=== PATIENT | female | born 2000 | race African-American/Black ===

== ENCOUNTER 2020-02-01 13:47 | Emergency (ER) | payer OTHER ==
[2020-02-01 13:58] VITALS: BP 127/62; PULSE 108; TEMP 97.8; BMI 37.5
[2020-02-01] MEDS ORDERED: ALBUTEROL SO4 2.5/IPRATROPIUM 0.5 INH SOL 3 ML VIAL.NEB. NEB ONE ×5 (14:04→14:31)
[2020-02-01] MEDS ORDERED: predniSONE 20 MG TABLET (UD) PO ONE (14:05)
[2020-02-01] MEDS ORDERED: predniSONE 20 MG TABLET (UD) ONE (14:06)
== END 2020-02-01 15:40 | disposition home or self-care (01) ==
LOC: JERFT 13:47
PROC: 3E0F7GC Introduction of Other Therapeutic Substance into Respiratory Tract, Via Natural or Artificial Opening (ICD-10-PCS; principal; 2020-02-01)
DX: J45.901 Unspecified asthma with (acute) exacerbation (principal)
CPT/HCPCS: 99285-25

== ENCOUNTER 2020-11-19 11:31 | Emergency (ER) | payer OTHER ==
[2020-11-19 11:45] VITALS: BP 117/71; PULSE 94; TEMP 98.4; BMI 38.4
[2020-11-19 12:38] LABS: BASO % 0.7 % (0-2.0); EOS % 2.7 % (0-4.5); HEMATOCRIT 40.2 % (32.4-45.2); LYMPH % 20.5 % (8-40); MCH 30.2 pg (25.7-33.7); MCHC 34.8 g/dl (32.0-36.0); MEAN CELL VOLUME 86.9 fl (80-96); MEAN PLT VOLUME 8.3 fl (7.5-11.1); MONO % 10.2 % (3.8-10.2); NEUT % 65.9 % (42.8-82.8); PLATELET COUNT 303 10^3/uL (134-434); RBC 4.63 M/mm3 (3.60-5.2); RDW 13.5 % (11.6-15.6); WHITE BLOOD COUNT 6.2 K/mm3 (4.0-10.0)
[2020-11-19 12:42] LABS: PH,URINE 6.5 (5.0-8.0); URINE APPEARANCE CLEAR; URINE BILIRUBIN NEGATIVE (NEGATIVE); URINE COLOR YELLOW; URINE GLUCOSE (UA) NEGATIVE (NEGATIVE); URINE KETONE NEGATIVE (NEGATIVE); URINE LEUK ESTERASE NEGATIVE (NEGATIVE); URINE NITRITE NEGATIVE (NEGATIVE); URINE PROTEIN NEGATIVE (NEGATIVE)
[2020-11-19 12:43] LABS: HCG,QUALITATIVE URINE Positive
== END 2020-11-19 15:05 | disposition home or self-care (01) ==
LOC: JERFT 11:31
DX: Z32.01 Encounter for pregnancy test, result positive (principal)
CPT/HCPCS: 36415; 81003; 84702; 84703; 85025; 86850; 86900; 86901; 87086; 87491; 87591; 99283-25

== ENCOUNTER 2020-12-03 12:13 | Emergency (ER) | payer OTHER ==
[2020-12-03 12:26] VITALS: BP 95/50; PULSE 86; TEMP 98.3; BMI 38.4
[2020-12-03 13:43] LABS: BASO % 0.6 % (0-2.0); EOS % 2.8 % (0-4.5); HEMATOCRIT 40.2 % (32.4-45.2); LYMPH % 25.4 % (8-40); MCH 30.3 pg (25.7-33.7); MCHC 34.7 g/dl (32.0-36.0); MEAN CELL VOLUME 87.3 fl (80-96); MEAN PLT VOLUME 8.7 fl (7.5-11.1); MONO % 11.1 % (3.8-10.2); NEUT % 60.1 % (42.8-82.8); PLATELET COUNT 313 10^3/uL (134-434); RBC 4.61 M/mm3 (3.60-5.2); RDW 12.9 % (11.6-15.6); WHITE BLOOD COUNT 5.7 K/mm3 (4.0-10.0)
[2020-12-03 13:59] LABS: EPI CELLS >36 /uL (0-25.1); HYALINE CASTS 1 /uL (0-3.1); PH,URINE 6.5 (5.0-8.0); URINE APPEARANCE CLOUDY; URINE BACTERIA 643 /uL (0-1359); URINE BILIRUBIN NEGATIVE (NEGATIVE); URINE COLOR YELLOW; URINE GLUCOSE (UA) NEGATIVE (NEGATIVE); URINE KETONE 2+ (NEGATIVE); URINE LEUK ESTERASE NEGATIVE (NEGATIVE); URINE NITRITE NEGATIVE (NEGATIVE); URINE PROTEIN NEGATIVE (NEGATIVE); URINE RBC 5 /uL (0-23.9); URINE WBC 17 /uL (0-25.8)
== END 2020-12-03 15:55 | disposition home or self-care (01) ==
LOC: JERFT 12:13
DX: O20.0 Threatened abortion (principal)
CPT/HCPCS: 36415; 76817-TC; 81003; 84702; 85025; 87086; 87491; 87591; 99284-25

== ENCOUNTER 2020-12-06 19:37 | Emergency (ER) | payer OTHER ==
[2020-12-06 19:41] VITALS: BP 100/71; PULSE 79; TEMP 98.3; BMI 40.2
== END 2020-12-06 23:36 | disposition home or self-care (01) ==
LOC: JER 19:37
DX: O20.0 Threatened abortion (principal); Z3A.01 Less than 8 weeks gestation of pregnancy
CPT/HCPCS: 36415; 84702; 99283-25

== ENCOUNTER 2021-07-25 01:45 | Inpatient (IN) | payer OTHER ==
[2021-07-25] MEDS ORDERED: DEXTROSE 5%-LACTATED RINGERS 1,000 ML IV SCH (02:10)
[2021-07-25] MEDS ORDERED: PROMETHAZINE HCL 25 MG/1 ML VIAL IVPB ONE (03:30)
[2021-07-25] MEDS ORDERED: BUTORPHANOL TARTRATE 1 MG/ML VIAL IVPB ONE (03:30)
[2021-07-25] MEDS ORDERED: PROMETHAZINE HCL 25 MG/1 ML VIAL ONE (03:41)
[2021-07-25] MEDS ORDERED: BUTORPHANOL TARTRATE 1 MG/ML VIAL ONE (03:41)
[2021-07-25 04:06] VITALS: BMI 44.2
[2021-07-25] MEDS ORDERED: CITRIC ACID/SODIUM CITRATE 30 ML UNIT-DOSE CUP PO ONE (05:00)
[2021-07-25] MEDS ORDERED: ELECTROLYTE-148 SOLN 500 ML IV ONE (05:00)
[2021-07-25] MEDS ORDERED: ELECTROLYTE-148 SOLN 1,000 ML IV SCH (05:30)
[2021-07-25] MEDS ORDERED: ACETAMINOPHEN 1000 MG/100 ML BAG IVPB PRN (07:09)
[2021-07-25] MEDS ORDERED: SENNOSIDES/DOCUSATE COMBO (SENNA PLUS) TABLET (UD) PO PRN (07:09)
[2021-07-25] MEDS ORDERED: ONDANSETRON 4 MG/2 ML VIAL IVPB PRN (07:09)
[2021-07-25] MEDS ORDERED: IBUPROFEN 800 MG/8 ML IJ IVPB PRN (07:09)
[2021-07-25] MEDS ORDERED: ACETAMINOPHEN 325 MG TABLET (FP) PO PRN (07:09)
[2021-07-25] MEDS ORDERED: OXYTOCIN 20 UNITS in 0.9% NS 20 UNIT/1,000 ML INFUS.BAG IV SCH (07:15)
[2021-07-25] MEDS ORDERED: ACETAMINOPHEN INJECTION 100 ML IVPB ONE (08:12)
[2021-07-25] MEDS: CEFAZOLIN 2 GM in DEXTROSE 5%-WATER - 100 ML IVPB SCH ×2 (09:30→17:50)
[2021-07-26] MEDS: oxyCODONE HCL 5 MG TABLET PO PRN ×2 (03:37→09:01)
[2021-07-26] MEDS: SIMETHICONE 80 MG TAB.CHEW (FP) PO PRN ×3 (03:37→19:50)
[2021-07-26] MEDS ORDERED: BISACODYL 10 MG SUPP.RECT RC PRN (07:09)
[2021-07-26 08:33] LABS: BASO % 0.3 % (0-2.0); EOS % 2.4 % (0-4.5); HEMATOCRIT 30.1 % (32.4-45.2); HEMOGLOBIN 10.2 GM/dL (10.7-15.3); MCH 28.3 pg (25.7-33.7); MCHC 33.8 g/dl (32.0-36.0); MEAN CELL VOLUME 83.8 fl (80-96); MEAN PLT VOLUME 9.9 fl (7.5-11.1); MONO % 9.2 % (3.8-10.2); NEUT % 73.1 % (42.8-82.8); PLATELET COUNT 271 10^3/uL (134-434); RBC 3.59 M/mm3 (3.60-5.2); RDW 13.3 % (11.6-15.6)
[2021-07-26] MEDS: IBUPROFEN 600 MG TABLET (FP) PO PRN ×2 (14:08→19:50)
[2021-07-27] MEDS: SIMETHICONE 80 MG TAB.CHEW (FP) PO PRN ×3 (01:43→16:07)
[2021-07-27] MEDS: IBUPROFEN 600 MG TABLET (FP) PO PRN ×3 (01:44→16:05)
[2021-07-28] MEDS: SIMETHICONE 80 MG TAB.CHEW (FP) PO PRN (01:58)
[2021-07-28] MEDS: IBUPROFEN 600 MG TABLET (FP) PO PRN (01:58)
[2021-07-28 09:42] VITALS: BP 107/69; PULSE 88; TEMP 98.7
== END 2021-07-28 10:20 | disposition home or self-care (01) | DRG 540 ==
LOC: JDEL 01:45 → JLDR 03:30 → J3W 08:20
PROVIDERS: ADMIT Specialist; ATTEND Specialist
PROC: 10D00Z1 Extraction of Products of Conception, Low, Open Approach (ICD-10-PCS; principal; 2021-07-25)
DX: O76 Abnormality in fetal heart rate and rhythm complicating labor and delivery (principal); Z3A.39 39 weeks gestation of pregnancy; Z37.0 Single live birth
CPT/HCPCS: 36415; 59025; 80053; 85025; 85027; 85610; 85730; 86780; 86850; 86900; 86901; 87389; 88307-TC; C9803-CS; U0003; U0005